=== PATIENT | female | born 1985 | race Caucasian/White ===

== ENCOUNTER 2021-05-31 07:00 | Emergency (ER) | payer OTHER ==
[~2021-05-31] VITALS: Ht 175.3 cm; Wt 86.2 kg
[2021-05-31] MEDS ORDERED: KETO10TA2 PO (08:33)
== END 2021-05-31 10:12 | disposition home or self-care (01) ==
LOC: ER 07:00
DX: S83.8X2A Sprain of other specified parts of left knee, initial encounter (principal); W18.09XA Striking against other object with subsequent fall, initial encounter; Y93.68 Activity, volleyball (beach) (court); Y92.098 Other place in other non-institutional residence as the place of occurrence of the external cause; Y99.8 Other external cause status

== ENCOUNTER 2021-06-02 13:39 | Outpatient (CLI) | payer OTHER ==
[~2021-06-02 13:39] MED LIST: KETO10TA2 PO
== END 2021-06-02 14:00 | disposition home or self-care (01) ==
LOC: MRI 13:39
PROVIDERS: ATTEND Orthopaedic Surgery
DX: M25.462 Effusion, left knee (principal); M25.562 Pain in left knee; S83.212A Bucket-handle tear of medial meniscus, current injury, left knee, initial encounter
CPT/HCPCS: 73721